=== PATIENT | male | born 1940 | race Caucasian/White ===

== ENCOUNTER 2022-02-07 19:38 | Inpatient (IN) | payer MEDICARE, BC ==
[~2022-02-07] VITALS: Ht 167.6 cm; Wt 78.5 kg
--- NOTE | 2022-02-07 20:15 | NUR ---
TO ER BED 8. C/O BILATERRAL BLURRY VISION , PER PT "UNABLE TO FOCUS" AND L WRIST WEAKNESS. BEGAN AT 1700. PT COVID POS. ISOLATION PRECAUTIONS IN PLACE. NO FACIAL DROOP NOTED. NO WEAKNESS ON EXTREMITIES. DENIES ANY CHEST PAIN. NOT RESP DISTRESS. CONNECTED TO MONITOR.
[2022-02-07] MEDS ORDERED: TETRAcaine 5 ML BOTTLE EACHEYE ONE (20:30)
--- NOTE | 2022-02-07 20:46 | NUR ---
PER LEVER OPERATOR , VISION 20/50 BILATERAL WITH GLASSES
[2022-02-07 21:15] LABS: CALCIUM, SERUM 8.3 mg/dL (8.5-10.1); CREATININE 0.8 mg/dL (0.6-1.3); POTASSIUM 4.1 mmol/L (3.5-5.1)
--- NOTE | 2022-02-07 21:17 | NUR ---
CRITICAL LAB Na 112
[2022-02-07 21:21] LABS: BASOPHILS % (AUTO) 0.1 % (0.0-2.0); EOSINOPHILS % (AUTO) 0.2 % (0.0-6.0); HEMATOCRIT 37 % (39-51); HEMOGLOBIN 12.9 g/dL (13.5-17.5); LYMPHOCYTES # (AUTO) 0.5 K/uL (0.8-4.8); LYMPHOCYTES % (AUTO) 6.9 % (20.0-44.0); MEAN CORPUSCULAR HGB CONC 35 g/dl (31.0-36.0); MEAN CORPUSCULAR VOLUME 89 fL (80-96); MONOCYTES # (AUTO) 0.9 K/uL (0.1-1.30); MONOCYTES % (AUTO) 11.8 % (2.0-12.0); PLATELET COUNT (AUTO) 244 K/uL (150-450); RED BLOOD CELL COUNT(AUTO) 4.19 MIL/uL (4.5-6.0); WHITE BLOOD COUNT (AUTO) 7.4 K/uL (4.3-11.0)
--- NOTE | 2022-02-07 21:48 | NUR ---
COVID ANTIGEN SWAB COLLECTED
[2022-02-07] MEDS ORDERED: IV NS 0.9% 500 ML IV ONE (22:00)
[2022-02-07 22:23] LABS: CALCIUM, SERUM 8.3 mg/dL (8.5-10.1); CARBON DIOXIDE 23 mmol/L (21-32); CHLORIDE 81 mmol/L (98-107); CREATININE 0.8 mg/dL (0.6-1.3); GLUCOSE 97 mg/dL (74-106); UREA NITROGEN, BLOOD 14 mg/dL (7-18)
[2022-02-07 22:28] LABS: POTASSIUM 4.1 mmol/L (3.5-5.1)
[2022-02-07 22:29] LABS: SODIUM SERUM 112 mmol/L (136-145)
--- NOTE | 2022-02-07 23:16 | NUR ---
FOOD AND WATER PROVIDED TO PT, WILL CONTINUE TO MONITOR
[2022-02-07] MEDS ORDERED: MAGNESIUM HYDROXIDE 30 ML UDC PO PRN (23:30)
[2022-02-07] MEDS ORDERED: Z GUARD REMEDY 4 OZ OINT TP PRN (23:30)
[2022-02-07] MEDS ORDERED: MAG HYDROX/AL HYDROX/SIMETH 30 ML UDC PO PRN (23:30)
[2022-02-07] MEDS ORDERED: ACETAMINOPHEN 325 MG TABLET PO PRN (23:30)
[2022-02-07] MEDS ORDERED: ALPRAZOLAM 0.5 MG TABLET PO PRN (23:30)
[2022-02-07] MEDS ORDERED: TEMAZEPAM 15 MG CAPSULE PO PRN (23:30)
[2022-02-08] VITALS (7 sets, daily range): BP systolic 125–160; BP diastolic 66–85
--- NOTE | 2022-02-08 00:34 | NUR ---
REPORT GIVEN TO EVELIN PADILLA FOR YAMILEX
--- NOTE | 2022-02-08 00:55 | NUR ---
jackson rn notes Received and admitted a 81 y/o male alert x4 ambulatory . able to make needs known on room air from home with admitted dx of hyponatremia , pts on covid positive no sob no distress noted hx of htn , pre diabetic hld v/s stable afebrile pts is nkda and is full code ,ivf on right hand G20 intact and patent with ns at 75cc/hr . all needs attended too call light within reach ,will continue to monitor pts.
--- NOTE | 2022-02-08 01:25 | NUR ---
0125 Patient with c/o dry cough, JOHAN Troy made aware with order for cough medication. Order noted.
[2022-02-08] MEDS: IV NS 0.9% 1,000 ML IV PRN ×2 (01:28→20:32)
[2022-02-08 02:24] LABS: CALCIUM, SERUM 7.6 mg/dL (8.5-10.1); CARBON DIOXIDE 24 mmol/L (21-32); CHLORIDE 84 mmol/L (98-107); CREATININE 0.8 mg/dL (0.6-1.3); GLUCOSE 94 mg/dL (74-106); UREA NITROGEN, BLOOD 15 mg/dL (7-18)
[2022-02-08 02:29] LABS: POTASSIUM 4.2 mmol/L (3.5-5.1)
[2022-02-08 02:30] LABS: SODIUM SERUM 115 mmol/L (136-145)
[2022-02-08] MEDS: GUAIFENESIN/CODEINE 10 ML UDC PO PRN ×3 (03:00→19:49)
[2022-02-08 06:19] LABS: MAGNESIUM 1.9 mg/dL (1.8-2.4); PHOSPHORUS 2.4 mg/dL (2.5-4.9)
[2022-02-08 06:29] LABS: THYROID STIMULATING HORMONE 0.863 uIU/mL (0.358-3.74)
[2022-02-08 06:47] LABS: BASOPHILS % (AUTO) 0.1 % (0.0-2.0); EOSINOPHILS % (AUTO) 0.5 % (0.0-6.0); HEMATOCRIT 33 % (39-51); LYMPHOCYTES # (AUTO) 0.8 K/uL (0.8-4.8); LYMPHOCYTES % (AUTO) 9.2 % (20.0-44.0); MEAN CORPUSCULAR HGB CONC 36 g/dl (31.0-36.0); MEAN CORPUSCULAR VOLUME 88 fL (80-96); MONOCYTES # (AUTO) 1.1 K/uL (0.1-1.30); NEUTROPHILS # (AUTO) 6.6 K/uL (1.8-8.9); NEUTROPHILS % (AUTO) 77.2 % (43.0-81.0); PLATELET COUNT (AUTO) 223 K/uL (150-450); RED BLOOD CELL COUNT(AUTO) 3.77 MIL/uL (4.5-6.0); WHITE BLOOD COUNT (AUTO) 8.6 K/uL (4.3-11.0)
[2022-02-08] MEDS ORDERED: ASPI-1169 PO (08:43)
[2022-02-08] MEDS ORDERED: OLME40TA18 PO (08:43)
[2022-02-08] MEDS ORDERED: SIMV-46 PO (08:43)
[2022-02-08] MEDS ORDERED: K PHOS NEUTRAL 250 MG TABLET PO ONE (09:00)
[2022-02-08 09:53] LABS: CALCIUM, SERUM 7.5 mg/dL (8.5-10.1); CREATININE 0.8 mg/dL (0.6-1.3); POTASSIUM 3.9 mmol/L (3.5-5.1)
[2022-02-08] MEDS ORDERED: FUROSEMIDE 20 MG/2 ML VIAL IV ONE (10:30)
[2022-02-08] MEDS: SODIUM CHLORIDE 1000 MG TABLET PO SCH (10:59)
[2022-02-08] MEDS: ENOXAPARIN SODIUM 40 MG/0.4 ML DISP.SYRIN SQ SCH (12:26)
[2022-02-08 12:47] LABS: C-REACTIVE PROTEIN 0.4 mg/dL (0.0-0.9)
[2022-02-08 12:52] LABS: ALBUMIN 2.9 g/dL (3.4-5.0); BILIRUBIN,DIRECT 0.1 mg/dL (0.0-0.2); BILIRUBIN,TOTAL 0.7 mg/dL (0.2-1.0)
[2022-02-08 13:39] LABS: CALCIUM, SERUM 7.5 mg/dL (8.5-10.1); CREATININE 0.9 mg/dL (0.6-1.3); POTASSIUM 3.8 mmol/L (3.5-5.1)
--- NOTE | 2022-02-08 15:33 | NUR ---
RN NOTE RECEIVED HOME MEDS FROM PT'S , SEAN. MD MADE AWARE AND AGREED TO CONTINUE REMAINING MEDS. HOME MEDS GIVEN TO PHARMACY.
--- NOTE | 2022-02-08 15:40 | NUR ---
RN NOTE PT WAS PICKED UP FOR MRI VIA WHEELCHAIR. PT NOT IN RESPI DISTRESS.
[2022-02-08] MEDS ORDERED: GADOTERATE MEGLUMINE 10 MMOL/20 ML VIAL IV ONE (16:27)
[2022-02-08] MEDS: NIRMATRELVIR PO SCH (17:13)
[2022-02-08] MEDS: RITONAVIR 100 MG PO SCH (17:13)
--- NOTE | 2022-02-08 19:21 | NUR ---
RN NOTE PT RESTING IN BED, REMAINS IN ROOM AIR. NOT IN RESPIRATORY DISTRESS. AFEBRILE. NO COMPLAINTS OF PAIN AND DISCOMFORT. ALL DUE MEDS TAKEN. MORNING AND EVENING CARE DONE. NEEDS ATTENDED. SAFETY MEASURES FOLLOWED. WILL CONTINUE TO MONITOR.
[2022-02-08 19:22] LABS: CALCIUM, SERUM 7.6 mg/dL (8.5-10.1); CREATININE 0.8 mg/dL (0.6-1.3); POTASSIUM 4.1 mmol/L (3.5-5.1)
--- NOTE | 2022-02-08 19:30 | NUR ---
RN NOTE RECEIVED PATIENT IN BED, AWAKE, ALERT, AND VERBALLY RESPONSIVE. ABLE TO MAKE NEEDS KNOWN. DENIES HEADACHE OR WEAKNESS ON ALL FOUR EXTREMITIES. BREATHING EVEN AND UNLABORED. TOLERATING ROOM AIR. DENIES FEELING SOB. NOTED WITH MILD NON-PRODUCTIVE COUGH. ON TELE MONITORING. DENIES CHEST PAIN. SKIN WARM AND DRY. RIGHT HAND 20G PERIPHERAL IV, INFUSING NS AT 75 CC/HR. DENIES PAIN. PATIENT IS AMBULATORY. REMINDED TO USE CALL LIGHT WHEN ASSISTANCE IS NEEDED. URINAL WITHIN REACH. ALL PERSONAL BELONGINGS WITHIN REACH. NO BLEEDING NOTED AT THIS TIME. SAFETY MEASURES NOTED. BED LOW, IN LOCKED POSITION, CALL LIGHT WITHIN REACH.
[2022-02-08] MEDS: SIMVASTATIN 20 MG TABLET PO SCH (21:58)
[2022-02-08] MEDS: TEMAZEPAM 15 MG CAPSULE PO PRN (21:58)
--- NOTE | 2022-02-08 22:00 | NUR ---
RN NOTE PATIENT ACCIDENTLY REMOVED PERIPHERAL IV 20G ON RIGHT HAND. REINSERTED 20G IV ON LEFT WRIST. RESTARTED IVF.
[2022-02-08] MEDS ORDERED: HYDROCODONE/APAP 5/325MG TABLET PO PRN (22:30)
[2022-02-09] VITALS: BP 158/72
[2022-02-09 03:00] LABS: CARBON DIOXIDE 23 mmol/L (21-32); CHLORIDE 86 mmol/L (98-107); CREATININE 0.9 mg/dL (0.6-1.3); GLUCOSE 114 mg/dL (74-106); UREA NITROGEN, BLOOD 18 mg/dL (7-18)
[2022-02-09 03:05] LABS: POTASSIUM 4.1 mmol/L (3.5-5.1)
[2022-02-09 03:09] LABS: SODIUM SERUM 117 mmol/L (136-145)
--- NOTE | 2022-02-09 03:23 | NUR ---
RN NOTE RECEIVED CRITICAL LAB, SODIUM SERUM 117. Patient with previous LOW serum sodium levels, MD waste transportation technician, Woodrow, notified and aware since beginning of PM Shift. no new order. MD ordered BMP Q 4H. previously on Sodium Serum q2h. Patient on NS at 75 cc/hr, Limiting PO water intake at this time. Patient AOX4. No changes in mental status. Sleeping at this time, arousable to name and touch. Denies headache, denies new onset weakness. Patient was able to stand up to have bed linen changed earlier. denied feeling of dizziness. No ataxia. Safety measures implemented, bed low, in locked position, call light within reach.
[2022-02-09 04:00] VITALS: BP 152/75
[2022-02-09] MEDS: IV NS 0.9% 1,000 ML IV PRN ×2 (04:41→20:55)
--- NOTE | 2022-02-09 07:00 | NUR ---
RN NOTE RECEIVED PATIENT on BED, AWAKE, ALERT, AND VERBALLY RESPONSIVE. ABLE TO MAKE NEEDS KNOWN.C/O CONSTIPATION, MOM GIVEN ON TELE SR HR IN 80'S , DENIES CHEST PAIN. SKIN WARM AND DRY. RIGHT HAND 20G PERIPHERAL IV, INFUSING NS AT 75 CC/HR. DENIES PAIN. PATIENT IS AMBULATORY. REMINDED TO USE CALL LIGHT WHEN ASSISTANCE IS NEEDED. URINAL WITHIN REACH. NO BLEEDING NOTED AT THIS TIME. SAFETY MEASURES NOTED.SR UP x3, BED LOW AND IN LOCKED POSITION, CALL LIGHT WITHIN REACH. WILL CONTINUE TO MONITOR
[2022-02-09 08:00] VITALS: BP 151/76
[2022-02-09 08:00] LABS: CALCIUM, SERUM 7.6 mg/dL (8.5-10.1); CREATININE 0.7 mg/dL (0.6-1.3); PHOSPHORUS 3.1 mg/dL (2.5-4.9); POTASSIUM 3.8 mmol/L (3.5-5.1)
[2022-02-09] MEDS: GUAIFENESIN/CODEINE 10 ML UDC PO PRN (08:10)
[2022-02-09] MEDS: ASPIRIN 81 MG TAB.CHEW PO SCH (08:12)
[2022-02-09] MEDS: LOSARTAN POTASSIUM 50 MG TABLET PO SCH (08:12)
[2022-02-09] MEDS: ENOXAPARIN SODIUM 40 MG/0.4 ML DISP.SYRIN SQ SCH (08:12)
[2022-02-09] MEDS: SODIUM CHLORIDE 1000 MG TABLET PO SCH (08:15)
[2022-02-09] MEDS: RITONAVIR 100 MG PO SCH ×2 (09:19→16:36)
[2022-02-09] MEDS: NIRMATRELVIR PO SCH ×2 (09:20→16:36)
[2022-02-09] MEDS: FUROSEMIDE 20 MG/2 ML VIAL IV SCH (10:16)
[2022-02-09] MEDS: POLYETHYLENE GLYCOL 3350 17 GM POWD.PACK PO SCH (11:23)
[2022-02-09] MEDS: DOCUSATE SODIUM LIQ 100 MG/10 ML UDC PO SCH ×2 (11:23→16:35)
[2022-02-09 12:00] VITALS: BP 95/54
[2022-02-09 16:00] VITALS: BP 155/72
[2022-02-09] MEDS: ONDANSETRON HCL/PF 4 MG/2 ML VIAL IVP PRN ×2 (16:36→22:55)
--- NOTE | 2022-02-09 16:36 | NUR ---
RN NOTES PT VOMITTED SMALL AMOUNT OF BROWNISH GASTRIC CONTENT, ZOFRAN IV GIVEN PER MD ORDER . CONTINUE TO MONITOR.
--- NOTE | 2022-02-09 18:11 | NUR ---
RN NOTES PT AT REST, NAUSEA IMPROVED , PT STATED FEELS BETTER , PT PASSING GAS, SR UP x3, CALL LIGHT WITHIN EASY REACH, BED LOCKED AND IN LOWEST POSITION, WILL ENDORSE TO MEDICAL SUPPORT SPECIALIST NURSE FOR CONTINUITY OF CARE .
--- NOTE | 2022-02-09 19:30 | NUR ---
RN NOTE RECEIVED PATIENT IN BED, AWAKE, ALERT, AND VERBALLY RESPONSIVE. AOX4. DENIES HEADACHE/NEW ONSET WEAKNESS. BREATHING EVEN AND UNLABORED. TOLERATING ROOM AIR. DENIES FEELING SHORTNESS OF BREATH. HOB ELEVATED 40 DEGREES. ON TELE MONITORING, DENIES CHEST PAIN. SKIN WARM AND DRY. LEFT HAND/WRIST 20G PERIPHERAL IV INTACT, INFUSING NS AT 75 CC/HR. URINAL AT BEDSIDE. PATIENT IS AMBULATORY. ASSISTED TO THE BATHROOM PER PATIENT REQUEST. PATIENT DENIES FEELINGS OF SYNCOPE. NO ATAXIA NOTED. URINATED ABOUT 100 CC OF OLAMIDE COLORED URINE. ASSISTED WITH PM HYGIENE CARE. EMESIS BAG AT BEDSIDE. NO N/V AT THIS TIME. BED LOW, IN LOCKED POSITION, CALL LIGHT WITHIN REACH.
[2022-02-09 20:00] VITALS: BP 146/81
[2022-02-09] MEDS: TEMAZEPAM 15 MG CAPSULE PO PRN (21:44)
[2022-02-09] MEDS: SIMVASTATIN 20 MG TABLET PO SCH (21:47)
--- NOTE | 2022-02-09 21:48 | NUR ---
RN NOTE PATIENT REFUSED PM SCHEDULED SIMVASTATIN. RISK AND BENEFITS EXPLAINED.
[2022-02-10] VITALS: BP 150/80
[2022-02-10 04:00] VITALS: BP 158/64
[2022-02-10] MEDS: ONDANSETRON HCL/PF 4 MG/2 ML VIAL IVP PRN (04:49)
--- NOTE | 2022-02-10 04:49 | NUR ---
RN NOTE PATIENT NOTED WITH 1 EPISODE OF VOMITING. SMALL AMOUNT OF BROWN COLORED EMESIS. ELEVATED HOB 90 DEGREES. PROVIDED WITH ICE CHIPS. ADMINISTERED ZOFRAN VIA IV ROUTE. NO S/S OF ASPIRATION. PATIENT FELT BETTER AFTER VOMITING. WILL CONTINUE TO MONITOR.
--- NOTE | 2022-02-10 05:56 | NUR ---
RN NOTE PATIENT HAD ONE EPISODE OF EMESIS. NO ASPIRATION. PATIENT CLEANED. ASSISTED PATIENT TO THE TOILET. PATIENT HAD A BOWEL MOVEMENT. PATIENT VERBALIZED FEELING RELIEF.
--- NOTE | 2022-02-10 07:34 | NUR ---
RN OPENING NOTE PATIENT RECEIVED IN BED, RESTING. PATIENT ON ROOM AIR WITH NO SIGNS OF LABORED BREATHING AT THIS TIME. LEFT WRIST 20G IV IN PLACE RUNNING NS AT 75CC/HR. PT ON FLUID RESTRICTION AT THIS TIME. BED LOCKED AND IN LOWEST POSITION, CALL LIGHT WITHIN REACH, 3 SIDE RAILS UP.
[2022-02-10 08:00] VITALS: BP 154/66
[2022-02-10] MEDS: FUROSEMIDE 20 MG/2 ML VIAL IV SCH (08:28)
[2022-02-10] MEDS: SODIUM CHLORIDE 1000 MG TABLET PO SCH (08:28)
[2022-02-10] MEDS: ASPIRIN 81 MG TAB.CHEW PO SCH (08:28)
[2022-02-10] MEDS: POLYETHYLENE GLYCOL 3350 17 GM POWD.PACK PO SCH (08:28)
[2022-02-10] MEDS: DOCUSATE SODIUM LIQ 100 MG/10 ML UDC PO SCH ×2 (08:28→16:19)
[2022-02-10] MEDS: LOSARTAN POTASSIUM 50 MG TABLET PO SCH (08:28)
[2022-02-10] MEDS: ENOXAPARIN SODIUM 40 MG/0.4 ML DISP.SYRIN SQ SCH (08:29)
[2022-02-10] MEDS: NIRMATRELVIR PO SCH (09:00)
[2022-02-10] MEDS: RITONAVIR 100 MG PO SCH (09:00)
[2022-02-10 09:08] LABS: ALBUMIN 2.9 g/dL (3.4-5.0); BILIRUBIN,DIRECT 0.2 mg/dL (0.0-0.2); BILIRUBIN,TOTAL 0.7 mg/dL (0.2-1.0); CALCIUM, SERUM 8.1 mg/dL (8.5-10.1); CREATININE 1.1 mg/dL (0.6-1.3); POTASSIUM 3.7 mmol/L (3.5-5.1)
[2022-02-10] MEDS ORDERED: LACTULOSE 10 G/15 ML UDC (PYXIS) PO SCH (09:30)
[2022-02-10] MEDS: IV NS 0.9% 1,000 ML IV PRN (10:18)
[2022-02-10 12:00] VITALS: BP 130/48
--- NOTE | 2022-02-10 12:54 | NUR ---
RN NOTE NG TUBE PLACED AND PUT ON LOW INTERMITTENT SUCTION ORDERED. 400CC OF DARK GASTRIC DRAINAGE OUT. STAT CXR ORDERED TO CONFIRM PLACEMENT.
[2022-02-10 16:00] VITALS: BP 159/70
--- NOTE | 2022-02-10 18:21 | NUR ---
RN NOTE SODIUM 119 VALUE RECEIVED. REPORTED TO DR. MUELLER. NO NEW ORDER.
--- NOTE | 2022-02-10 18:40 | NUR ---
RN NOTE ORDERED RECEIVED FROM DR. SAENZ FOR 3% NACL AT 40CC/HR FOR 5 HOURS, HOLD NS DURING NACL AND RESUME AFTER. DRAW SERUM SODIUM AFTER FULL 5HOURS OF NACL COMPLETED. INSERT NGO CATHETER. ORDER PLACED.
--- NOTE | 2022-02-10 18:43 | NUR ---
RN CLOSING NOTE PATIENT REMAINS IN BED, AWAKE, A&OX4. PATIENT ON ROOM AIR WITH NO SIGNS OF LABORED BREATHING AT THIS TIME. LEFT WRIST 20G IV IN PLACE RUNNING NS AT 75CC/HR. NG TUBE IN PLACE ON LOW INTERMITTENT SUCTION, 400CC OUTPUT. BED LOCKED AND IN LOWEST POSITION, CALL LIGHT WITHIN REACH, 3 SIDE RAILS UP. ALL NEEDS ATTENDED DURING SHIFT. WILL ENDORSE TO ASSEMBLY REPAIRER NURSE.
--- NOTE | 2022-02-10 18:56 | NUR ---
RN NOTE NGO CATHETER INSERTED ORDERED. PT TOLERATED WELL. WILL ENDORSE.
[2022-02-10] MEDS ORDERED: SODIUM CHLORIDE 3% IV ONE (19:00)
--- NOTE | 2022-02-10 19:10 | NUR ---
RN OPENING NOTE RECEIVED PT IN BED, RESTING, A/O X 4. ON ROOM AIR TOLERATING WELL. NO SIGNS OF ACUTE DISTRESS NOTED AT THIS TIME. PT ON NGT WITH LOW INTERMITTENT SUCTION, TOLERATING WELL. IV ACCES AT LEFT WRIST 20G IV IN PLACE RUNNING NS AT 75CC/HR. NO SIGNS OF INFILTRATION NOTED. PT IS NPO. ALL SAFETY MEASURES IN PLACE. BED LOCKED AND IN LOWEST POSITION, CALL LIGHT WITHIN REACH. WILL CONTINUE TO MONITOR.
[2022-02-10 20:00] VITALS: BP 154/64
--- NOTE | 2022-02-10 21:12 | NUR ---
RN NOTE RECEIVED REPORT FROM LAUREEN FOR YAMILEX. PT AWAKE A0X4. DENIES ANY PAIN OR SOB. WITH NGT CONNECTED TO SUCTION, WITH GREENISH DRAINAGE. IV ON L WRIST PATENT AND INTACT, INFUSING NS 3% AT 40ML/HR. NGO IN PLACE WITH YELLOW URINE OUTPUT. WILL CONTINUE TO MONITOR.
[2022-02-10] MEDS: SIMVASTATIN 20 MG TABLET PO SCH (22:00)
[2022-02-11] VITALS: BP 137/60
[2022-02-11] MEDS: IV NS 0.9% 1,000 ML IV PRN ×2 (02:16→15:23)
[2022-02-11 04:00] VITALS: BP 131/61
[2022-02-11 05:02] LABS: BASOPHILS % (AUTO) 0.2 % (0.0-2.0); EOSINOPHILS % (AUTO) 0.1 % (0.0-6.0); HEMATOCRIT 38 % (39-51); HEMOGLOBIN 13.1 g/dL (13.5-17.5); LYMPHOCYTES # (AUTO) 0.7 K/uL (0.8-4.8); LYMPHOCYTES % (AUTO) 6.2 % (20.0-44.0); MEAN CORPUSCULAR HGB CONC 34 g/dl (31.0-36.0); MEAN CORPUSCULAR VOLUME 90 fL (80-96); MONOCYTES # (AUTO) 1.2 K/uL (0.1-1.30); MONOCYTES % (AUTO) 11.1 % (2.0-12.0); NEUTROPHILS # (AUTO) 8.9 K/uL (1.8-8.9); NEUTROPHILS % (AUTO) 82.4 % (43.0-81.0); PLATELET COUNT (AUTO) 278 K/uL (150-450); RED BLOOD CELL COUNT(AUTO) 4.23 MIL/uL (4.5-6.0); WHITE BLOOD COUNT (AUTO) 10.8 K/uL (4.3-11.0)
[2022-02-11 05:16] LABS: ALBUMIN 2.8 g/dL (3.4-5.0); BILIRUBIN,TOTAL 0.6 mg/dL (0.2-1.0); CALCIUM, SERUM 8.1 mg/dL (8.5-10.1); CREATININE 1.1 mg/dL (0.6-1.3); POTASSIUM 3.7 mmol/L (3.5-5.1); TOTAL PROTEIN, SERUM 5.9 g/dL (6.4-8.2)
--- NOTE | 2022-02-11 07:15 | NUR ---
RN OPENING NOTE RECEIVED PATIENT IN BED, AWAKE, A/O X 4. ON ROOM AIR TOLERATING WELL. BREATHING EVEN AND UNLABORED. NO SIGNS OF ACUTE DISTRESS NOTED AT THIS TIME. PT ON NGT WITH LOW INTERMITTENT SUCTION, TOLERATING WELL. PT IS NPO. IV ACCES AT LEFT WRIST 20G PATENT AND INTACT, INFUSING NS AT 75CC/HR. NO SIGNS OF INFILTRATION NOTED. ALL SAFETY MEASURES IN PLACE. BED LOCKED AND IN LOWEST POSITION, CALL LIGHT WITHIN REACH. WILL CONTINUE TO MONITOR PATIENT ACCORDINGLY THROUGHOUT SHIFT.
--- NOTE | 2022-02-11 07:15 | NUR ---
RN NOTE PT SLEEPING, AROUSES EASILY. NO CHANGES IN LOC NOTED. CONTINUE WITH NG CONNECTED TO LOW INTERMITTENT SUCTION WITH 1350 ML TOTAL DRAINAGE OUTPUT. DENIES PAIN OR SOB. REMAIN AFEBRILE. NGO DRAINING WELL. WILL ENDORSE TO NEXT SHIFT NURSE FOR YAMILEX.
[2022-02-11 08:00] VITALS: BP 147/64
[2022-02-11] MEDS: LOSARTAN POTASSIUM 50 MG TABLET PO SCH (09:00)
[2022-02-11] MEDS: ASPIRIN 81 MG TAB.CHEW PO SCH (09:00)
[2022-02-11] MEDS: ENOXAPARIN SODIUM 40 MG/0.4 ML DISP.SYRIN SQ SCH (09:00)
[2022-02-11] MEDS: SODIUM CHLORIDE 1000 MG TABLET PO SCH (09:00)
[2022-02-11] MEDS: POLYETHYLENE GLYCOL 3350 17 GM POWD.PACK PO SCH (09:00)
[2022-02-11] MEDS: DOCUSATE SODIUM LIQ 100 MG/10 ML UDC PO SCH ×2 (09:00→17:00)
[2022-02-11] MEDS: FUROSEMIDE 20 MG/2 ML VIAL IV SCH (09:30)
[2022-02-11 12:00] VITALS: BP 140/58
[2022-02-11] MEDS ORDERED: DIATR MEGLU/DIATRIZOATE SODIUM 120 ML BOTTLE (GASTROGRAPHIN) ONE (12:03)
[2022-02-11 16:00] VITALS: BP 149/63
--- NOTE | 2022-02-11 16:45 | NUR ---
RN NOTE COMMUNICATIONS DIRECTOR AT BEDSIDE TO PERFORM XRAY SMALL BOWEL FOLLOW THROUGH.
--- NOTE | 2022-02-11 18:43 | NUR ---
RN CLOSING NOTES PATIENT REMAINS IN STABLE CONDITION THROUGHOUT SHIFT. PATIENT AWAKE, A/O X 4. ON ROOM AIR TOLERATING WELL. BREATHING EVEN AND UNLABORED. NO SIGNS OF ACUTE DISTRESS NOTED AT THIS TIME. PT ON NGT WITH LOW INTERMITTENT SUCTION, TOLERATING WELL WITH OUTPUT OF 150 ML DURING SHIFT. PT IS STILL ON NPO PENDING SMALL BOWEL FOLLOW THROUGH. HELD ALL PO APPLICABLE MEDS. KEPT PATIENT CLEAN DRY AND COMFORTABLE. ALL NEEDS ATTENDED. IV ACCES AT LEFT WRIST 20G PATENT AND INTACT, INFUSING NS AT 75CC/HR. NO SIGNS OF INFILTRATION NOTED. ALL SAFETY MEASURES IN PLACE. BED LOCKED AND IN LOWEST POSITION, CALL LIGHT WITHIN REACH. WILL ENDORSE TO ONCOMING NURSE FOR CONTINUITY OF CARE.
--- NOTE | 2022-02-11 19:34 | NUR ---
RN NOTE PATIENT AWAKE, ALERT, AND ORIENTED X4. ON ROOM AIR, NO S/S OF ANY ACUTE RESPIRATORY DISTRESS. DENIES ANY PAIN AT THIS TIME. NGO CATH IN PLACE, DRAINING VIA GRAVITY. NGT IN PLACE, CLAMPED. XRAY AT BEDSIDE FOR SMALL BOWEL FOLLOW THROUGH. IV ACCESS ON LEFT WRIST #20 INFUSING NS @ 75ML/HR. BED LOCKED AND IN LOWEST POSITION. SAFETY MEASURES MAINTAINED. CALL LIGHT WITHIN REACH. ALL NEEDS ANTICIPATED.
[2022-02-11 20:00] VITALS: BP 151/65
[2022-02-11] MEDS: SIMVASTATIN 20 MG TABLET PO SCH (22:00)
[2022-02-12] VITALS: BP 147/65
[2022-02-12 04:00] VITALS: BP 157/65
[2022-02-12] MEDS: IV NS 0.9% 1,000 ML IV PRN (04:13)
[2022-02-12 05:47] LABS: ALANINE AMINOTRANSFERASE 43 U/L (12-78); ALBUMIN 2.6 g/dL (3.4-5.0); ALKALINE PHOSPHATASE 38 U/L (46-116); ASPARTATE AMINOTRANSFERASE 25 U/L (15-37); BILIRUBIN,TOTAL 0.5 mg/dL (0.2-1.0); CALCIUM, SERUM 8.1 mg/dL (8.5-10.1); CARBON DIOXIDE 28 mmol/L (21-32); CHLORIDE 96 mmol/L (98-107); CREATININE 1.1 mg/dL (0.6-1.3); GLUCOSE 134 mg/dL (74-106); POTASSIUM 3.5 mmol/L (3.5-5.1); SODIUM SERUM 132 mmol/L (136-145); TOTAL PROTEIN, SERUM 5.7 g/dL (6.4-8.2); UREA NITROGEN, BLOOD 46 mg/dL (7-18)
--- NOTE | 2022-02-12 06:30 | NUR ---
RN NOTE PATIENT RESTING IN BED. ON O2 3L VIA NASAL CANNULA, NO SOB NOTED. NGO CATH IN PLACE, OUTPUT 800. NGT IN PLACE, CONTINUED LOW INTERMITTENT SUCTION POST XRAY SMALL BOWEL. NOTED WITH 400CC DARK GREEN GASTRIC FLUID. IV ACCESS ON LEFT WRIST #20 INFUSING NS @ 75ML/HR. BED LOCKED AND IN LOWEST POSITION. SAFETY MEASURES MAINTAINED. CALL LIGHT WITHIN REACH. WILL ENDORSE TO AM SHIFT.
[2022-02-12 08:00] VITALS: BP 142/68
[2022-02-12] MEDS: SODIUM CHLORIDE 1000 MG TABLET PO SCH (09:08)
[2022-02-12] MEDS: ASPIRIN 81 MG TAB.CHEW PO SCH (09:08)
[2022-02-12] MEDS: FUROSEMIDE 20 MG/2 ML VIAL IV SCH (09:09)
[2022-02-12] MEDS: DOCUSATE SODIUM LIQ 100 MG/10 ML UDC PO SCH ×2 (09:10→17:51)
[2022-02-12] MEDS: LOSARTAN POTASSIUM 50 MG TABLET PO SCH (09:10)
[2022-02-12] MEDS: POLYETHYLENE GLYCOL 3350 17 GM POWD.PACK PO SCH (09:10)
[2022-02-12] MEDS: ENOXAPARIN SODIUM 40 MG/0.4 ML DISP.SYRIN SQ SCH (09:16)
[2022-02-12 12:00] VITALS: BP 132/64
[2022-02-12 16:00] VITALS: BP 138/66
--- NOTE | 2022-02-12 19:10 | NUR ---
RN NOTE PT RECEIVED IN BED. CURRENTLY ON 3L OF O2 VIA NC SHOWING NO S/SX OF RESP DISTRESS. BREATHING EVEN AND UNLABORED. PT IS A/O X 4. NGT NOTED ON WITH LOW INTERMITTENT SUCTION DRAINING DARK GREEN GASTRIC FLUID. PT IS NPO. IV ACCESS NOTED AT LEFT WRIST 20G PATENT AND INTACT, INFUSING NS AT 75CC/HR. NO SIGNS OF INFILTRATION. ALL SAFETY MEASURES IMPLEMENTED. CALL LIGHT WITHIN REACH. BED LOCKED AND IN LOWEST POSITION, CALL LIGHT WITHIN REACH. WILL CONTINUE TO MONITOR PATIENT AND ASSESS FOR ANY CHANGES DURING SHIFT.
[2022-02-12 20:00] VITALS: BP 149/66
[2022-02-12] MEDS: SIMVASTATIN 20 MG TABLET PO SCH (21:41)
[2022-02-13] VITALS: BP 153/68
[2022-02-13] MEDS: IV NS 0.9% 1,000 ML IV PRN ×2 (00:29→13:31)
[2022-02-13 04:00] VITALS: BP 161/48
--- NOTE | 2022-02-13 05:12 | NUR ---
RN NOTE MADE PATIENT ROUNDING AND NG TUBE WAS ON THE FLOOR. RE-INSERTED NG TUBE, ASPIRATED, AUSCULTATED, AND ORDERED STAT CHEST XRAY.
--- NOTE | 2022-02-13 06:37 | NUR ---
RN NOTE NO CHANGES IN PT CONDITION DURING SHIFT. CURRENTLY ON 3L OF O2 VIA NC SHOWING NO S/SX OF RESP DISTRESS. BREATHING EVEN AND UNLABORED. IV ACCESS NOTED AT LEFT WRIST 20G PATENT AND INTACT, INFUSING NS AT 75CC/HR. NO SIGNS OF INFILTRATION. ALL SAFETY MEASURES IMPLEMENTED. PT KEPT CLEAN AND COMFORTABLE. ALL DUE MEDS GIVEN ORDERED. CALL LIGHT WITHIN REACH. BED LOCKED AND IN LOWEST POSITION, CALL LIGHT WITHIN REACH. WILL ENDORSE TO MORNING SHIFT RN FOR YAMILEX.
--- NOTE | 2022-02-13 07:28 | NUR ---
RN OPENING NOTES: PT RECEIVED IN BED. CURRENTLY ON 3L OF O2 VIA NC SHOWING NO S/SX OF RESP DISTRESS. BREATHING EVEN AND UNLABORED. PT IS A/O X 3-4. NGT NOTED ON WITH LOW INTERMITTENT SUCTION DRAINING DARK GREEN GASTRIC FLUID. PT IS NPO. IV ACCESS NOTED AT LEFT WRIST 20G PATENT AND INTACT, INFUSING NS AT 75CC/HR. NO SIGNS OF INFILTRATION. ALL SAFETY MEASURES IMPLEMENTED. CALL LIGHT WITHIN REACH. BED LOCKED AND IN LOWEST POSITION, CALL LIGHT WITHIN REACH. WILL CONTINUE TO MONITOR PATIENT AND ASSESS FOR ANY CHANGES DURING SHIFT.
[2022-02-13 07:33] LABS: EOSINOPHILS % (AUTO) 0.4 % (0.0-6.0); HEMATOCRIT 34 % (39-51); HEMOGLOBIN 11.5 g/dL (13.5-17.5); LYMPHOCYTES # (AUTO) 0.5 K/uL (0.8-4.8); LYMPHOCYTES % (AUTO) 6.4 % (20.0-44.0); MEAN CORPUSCULAR HGB CONC 34 g/dl (31.0-36.0); MEAN CORPUSCULAR VOLUME 92 fL (80-96); MONOCYTES # (AUTO) 0.8 K/uL (0.1-1.30); MONOCYTES % (AUTO) 9.7 % (2.0-12.0); NEUTROPHILS # (AUTO) 7.1 K/uL (1.8-8.9); NEUTROPHILS % (AUTO) 83.5 % (43.0-81.0); PLATELET COUNT (AUTO) 255 K/uL (150-450); RED BLOOD CELL COUNT(AUTO) 3.64 MIL/uL (4.5-6.0); WHITE BLOOD COUNT (AUTO) 8.5 K/uL (4.3-11.0)
[2022-02-13 07:56] LABS: ALANINE AMINOTRANSFERASE 40 U/L (12-78); ALBUMIN 2.2 g/dL (3.4-5.0); ALKALINE PHOSPHATASE 41 U/L (46-116); ASPARTATE AMINOTRANSFERASE 37 U/L (15-37); BILIRUBIN,TOTAL 0.5 mg/dL (0.2-1.0); CARBON DIOXIDE 28 mmol/L (21-32); CHLORIDE 102 mmol/L (98-107); CREATININE 0.9 mg/dL (0.6-1.3); GLUCOSE 93 mg/dL (74-106); POTASSIUM 3.3 mmol/L (3.5-5.1); SODIUM SERUM 139 mmol/L (136-145); TOTAL PROTEIN, SERUM 5.4 g/dL (6.4-8.2); UREA NITROGEN, BLOOD 38 mg/dL (7-18)
[2022-02-13 08:00] VITALS: BP 163/63
[2022-02-13] MEDS: LOSARTAN POTASSIUM 50 MG TABLET PO SCH (08:42)
[2022-02-13] MEDS: ASPIRIN 81 MG TAB.CHEW PO SCH (08:42)
[2022-02-13] MEDS: DOCUSATE SODIUM LIQ 100 MG/10 ML UDC PO SCH ×2 (08:42→16:22)
[2022-02-13] MEDS: SODIUM CHLORIDE 1000 MG TABLET PO SCH (08:43)
[2022-02-13] MEDS: POLYETHYLENE GLYCOL 3350 17 GM POWD.PACK PO SCH (08:43)
[2022-02-13] MEDS: ENOXAPARIN SODIUM 40 MG/0.4 ML DISP.SYRIN SQ SCH (08:52)
[2022-02-13] MEDS: FUROSEMIDE 20 MG/2 ML VIAL IV SCH (08:53)
[2022-02-13 12:00] VITALS: BP 152/62
[2022-02-13] MEDS: POTASSIUM CL. PREMIX PERIPHER. 50 ML IV SCH ×2 (12:09→13:29)
--- NOTE | 2022-02-13 15:30 | NUR ---
RN notes: seen by Priscila [facility] COMMISSIONER surgeon who reviewed KUB result, aware that pt had large loose BM with order to DC NGT and start clear liquid diet and advance as tolerated, NGT remived, pt started to drink apple juice well tolerated, will monitor pt
[2022-02-13 16:00] VITALS: BP 153/63
--- NOTE | 2022-02-13 18:35 | NUR ---
RN notes: weaning trail to take off oxygen done pt left 30 moniutes without oxygen denies any SOB, O2 sat 96%
--- NOTE | 2022-02-13 19:19 | NUR ---
RN closing notes: PATIENT IN STABLE CONDITION THROUGHOUT SHIFT. PATIENT AWAKE, A/O X 4. ON ROOM AIR TOLERATING WELL,2 sat 96%. BREATHING EVEN AND UNLABORED. NO SIGNS OF ACUTE DISTRESS NOTED AT THIS TIME. PT TOLERATED HIS DIET LIQUID DIET WELL,. HELD ALL PO APPLICABLE MEDS. KEPT PATIENT CLEAN DRY AND COMFORTABLE. ALL NEEDS ATTENDED. IV ACCES AT LEFT WRIST 20G PATENT AND INTACT, iv FLUID WAS DISCONTINUED. ALL SAFETY MEASURES IN PLACE. BED LOCKED AND IN LOWEST POSITION, CALL LIGHT WITHIN REACH. WILL ENDORSE TO ONCOMING NURSE FOR CONTINUITY OF CARE
--- NOTE | 2022-02-13 19:50 | NUR ---
RN NOTE RECEIVED PATIENT IN BED, AWAKE, ALERT, AND VERBALLY RESPONSIVE. AOX4, ABLE TO MAKE NEEDS KNOWN. BREATHING EVEN AND UNLABORED. NOTED WITH COUGH. NO SPUTUM. DENIES SOB. ON ROOM AIR. HOB ELEVATED SEMI FERRERA. NOT ON TELE MONITORING. PATIENT DENIES CHEST PAIN. SKIN WARM AND DRY. LEFT WRIST 20G PERIPHERAL IV IS INTACT AND FLUSHING WELL WITH NO INFILTRATION. PATIENT DENIES PAIN ON SITE. NO IVF RUNNING. DENIES ABDOMINAL PAIN. INDWELLING NGO CATHETER INTACT, NO BLEEDING, DRAINING BY GRAVITY. BED LOW, IN LOCKED POSITION, CALL LIGHT WITHIN REACH. ALL BELONGINGS WITHIN REACH. WILL CONTINUE TO MONITOR.
[2022-02-13 20:00] VITALS: BP 154/62
[2022-02-13] MEDS: SIMVASTATIN 20 MG TABLET PO SCH (21:34)
--- NOTE | 2022-02-13 21:34 | NUR ---
RN NOTE PATIENT REFUSED PM SIMVASTATIN. EXPLAINED RISK AND BENEFITS 3X. REFUSED.
[2022-02-14] VITALS: BP 150/68
[2022-02-14 04:00] VITALS: BP 155/75
[2022-02-14 07:07] LABS: BASOPHILS % (AUTO) 0.1 % (0.0-2.0); EOSINOPHILS % (AUTO) 1.9 % (0.0-6.0); HEMATOCRIT 34 % (39-51); HEMOGLOBIN 11.5 g/dL (13.5-17.5); LYMPHOCYTES # (AUTO) 0.5 K/uL (0.8-4.8); LYMPHOCYTES % (AUTO) 7.4 % (20.0-44.0); MEAN CORPUSCULAR HGB CONC 34 g/dl (31.0-36.0); MEAN CORPUSCULAR VOLUME 91 fL (80-96); NEUTROPHILS # (AUTO) 5.5 K/uL (1.8-8.9); NEUTROPHILS % (AUTO) 76.6 % (43.0-81.0); PLATELET COUNT (AUTO) 283 K/uL (150-450); RED BLOOD CELL COUNT(AUTO) 3.67 MIL/uL (4.5-6.0); WHITE BLOOD COUNT (AUTO) 7.1 K/uL (4.3-11.0)
[2022-02-14 07:16] LABS: ALANINE AMINOTRANSFERASE 38 U/L (12-78); ALBUMIN 2.1 g/dL (3.4-5.0); ALKALINE PHOSPHATASE 43 U/L (46-116); ASPARTATE AMINOTRANSFERASE 38 U/L (15-37); BILIRUBIN,TOTAL 0.5 mg/dL (0.2-1.0); CALCIUM, SERUM 8.3 mg/dL (8.5-10.1); CARBON DIOXIDE 32 mmol/L (21-32); CHLORIDE 102 mmol/L (98-107); CREATININE 0.8 mg/dL (0.6-1.3); GLUCOSE 103 mg/dL (74-106); POTASSIUM 3.3 mmol/L (3.5-5.1); SODIUM SERUM 140 mmol/L (136-145); TOTAL PROTEIN, SERUM 5.4 g/dL (6.4-8.2); UREA NITROGEN, BLOOD 30 mg/dL (7-18)
--- NOTE | 2022-02-14 07:30 | NUR ---
MS RN AM NOTE PATIENT IN BED, AOX4, ABLE TO MAKE NEEDS KNOWN. DENIES SOB, ON ROOM AIR, O2 SAT AT 95%, RESPIRATION UNLABORED, OCCASIONAL PRODUCTIVE COUGH. HOB ELEVATED SEMI FERRERA. DENIES CHEST PAINS OR ANY DISCOMFORT. SKIN WARM AND DRY. LEFT WRIST 20G PERIPHERAL IV FLUSHES WELL, SITE CLEAR. ABDOMEN, VERY FIRM AND DISTENDED, DENIES ABDOMINAL PAIN. HYPOACTIVE BOWEL SOUND, NO NAUSEA/VOMITING. INDWELLING NGO CATHETER INTACT, NO BLEEDING, DRAINING BY GRAVITY. BED LOW, IN LOCKED POSITION, CALL LIGHT WITHIN REACH. ALL BELONGINGS WITHIN REACH. POC DISCUSSED. VERBALIZED UNDERSTANDING. WILL CONTINUE TO MONITOR.
[2022-02-14 08:00] VITALS: BP 161/70
[2022-02-14] MEDS: DOCUSATE SODIUM LIQ 100 MG/10 ML UDC PO SCH ×2 (08:47→16:45)
[2022-02-14] MEDS: FUROSEMIDE 20 MG/2 ML VIAL IV SCH (08:47)
[2022-02-14] MEDS: ASPIRIN 81 MG TAB.CHEW PO SCH (08:47)
[2022-02-14] MEDS: POLYETHYLENE GLYCOL 3350 17 GM POWD.PACK PO SCH (08:48)
[2022-02-14] MEDS: LOSARTAN POTASSIUM 50 MG TABLET PO SCH (08:48)
[2022-02-14] MEDS: SODIUM CHLORIDE 1000 MG TABLET PO SCH (08:49)
[2022-02-14] MEDS: ENOXAPARIN SODIUM 40 MG/0.4 ML DISP.SYRIN SQ SCH (08:53)
--- NOTE | 2022-02-14 09:30 | NUR ---
RN NOTES DUE MEDS GIVEN
[2022-02-14] MEDS ORDERED: POTASSIUM CHLORIDE 20 MEQ POWDER PACKET PO SCH (10:00)
--- NOTE | 2022-02-14 10:32 | NUR ---
RN NOTES DR. KOENIG ORDERED FOR SMALL BOWEL FOLLOW THROUGH. PATIENT HAS DISTENDED ABDOMEN AND VERY FIRM. NO TENDERNESS. NO BM. PER XRAY THERES NO REASON TO DO SMALL BOWEL FOLLOW THROUGH DONE 2 DAYS. PER XRAY, IF DR. KOENIG COULD TALK TO THE RADIOLOGIST. PROVIDED XRAYS NUMBER. PER DR. KOENIG, WILL GIVE THEM A CALL.
--- NOTE | 2022-02-14 13:12 | NUR ---
RN NOTES PITA LACQUER DIPPING MACHINE OPERATOR FOR DR IRON MEDEROS AT BEDSIDE, INFORMED HER THAT DR. KOENIG WANTED TO DO A REPEAT SMALL BOWEL FOLLOW THROUGH, BUT ACCORDING TO HER JUST DO A REPEAT KUB IN AM.
--- NOTE | 2022-02-14 13:20 | NUR ---
RN NOTES PER DR. KOENIG, CANCEL SMALL BOWEL FOLLOWTHROUGH. WILL DO KUB IN AM INSTEAD. KEEP ON CLEAR LIQUID DIET
[2022-02-14 16:00] VITALS: BP 163/69
--- NOTE | 2022-02-14 18:27 | NUR ---
MS RN CLOSING NOTE PATIENT IN BED, AOX4, RESTING COMFORTABLY. ABLE TO MAKE NEEDS KNOWN. DENIES SOB, ON ROOM AIR, O2 SAT AT 95%, RESPIRATION UNLABORED, OCCASIONAL PRODUCTIVE COUGH. HOB ELEVATED SEMI FERRERA. DENIES CHEST PAINS OR ANY DISCOMFORT. SKIN WARM AND DRY. LEFT WRIST 20G PERIPHERAL IV FLUSHES WELL, SITE CLEAR. ABDOMEN, SLIGHTLY DISTENDED, DENIES ABDOMINAL PAIN. HYPOACTIVE BOWEL SOUND, NO NAUSEA/VOMITING. INDWELLING NGO CATHETER INTACT, WITH 2125 ML OUTPUT. DRAINING BY GRAVITY. BED LOW, IN LOCKED POSITION, CALL LIGHT WITHIN REACH. ALL BELONGINGS WITHIN REACH. ALL NEEDS MET AT THIS TIME. PM CARE DONE EARLIER. WILL ENDORSE TO NEXT SHIFT FOR YAMILEX. FOR KUB ABDOMEN IN AM.
--- NOTE | 2022-02-14 19:40 | NUR ---
RN NOTE RECEIVED PATIENT IN BED, AWAKE, ALERT, AND VERBALLY RESPONSIVE. ABLE TO MAKE NEEDS KNOWN. BREATHING EVEN AND UNLABORED. ON ROOM AIR. TOLERATING WELL. DENIES SOB. NOTED WITH PRODUCTIVE COUGH. NOT ON TELE MONITORING. DENIES CHEST PAIN. SKIN IS WARM AND DRY. LEFT WRIST 20G PERIPHERAL IV. NO IVF. PATIENT NOT COMPLAINING OF ANY ABDOMINAL ISSUE AT THIS TIME. NOTED PATIENT WITH FIRM ABDOMEN. NON-TENDER. PATIENT STATES HE HAD ONE BM IN AFTERNOON. INDWELLING NGO CATHETER INTACT, DRAINING YELLOW URINE. DENIES PAIN AT THIS TIME. ALL BELONGINGS WITHIN REACH. BED LOW, IN LOCKED POSITION, CALL LIGHT WITHIN REACH.
[2022-02-14 20:00] VITALS: BP 154/65
[2022-02-14] MEDS: SIMVASTATIN 20 MG TABLET PO SCH (22:00)
[2022-02-15 04:00] VITALS: BP 158/80
--- NOTE | 2022-02-15 06:35 | NUR ---
RN NOTE NO SIGNIFICANT CHANGES. PATIENT DID NOT COMPLAIN OF ABDOMINAL DISCOMFORT. PATIENT WAS ASSISTED TO BEDSIDE CHAIR PER REQUEST. WATCHED TELEVISION. ALL NEEDS ATTENDED. ASSISTED WITH HYGIENE CARE. INDWELLING NGO CATHETER CLEANED. INTACT. DRAINING YELLOW URINE. ALL BELONGINGS WITHIN REACH. BED LOW, IN LOCKED POSITION, CALL LIGHT WITHIN REACH.
[2022-02-15 07:02] LABS: BASOPHILS % (AUTO) 0.1 % (0.0-2.0); EOSINOPHILS % (AUTO) 1.5 % (0.0-6.0); HEMATOCRIT 33 % (39-51); HEMOGLOBIN 11.5 g/dL (13.5-17.5); LYMPHOCYTES # (AUTO) 0.8 K/uL (0.8-4.8); LYMPHOCYTES % (AUTO) 9.2 % (20.0-44.0); MEAN CORPUSCULAR HGB CONC 34 g/dl (31.0-36.0); MEAN CORPUSCULAR VOLUME 91 fL (80-96); MONOCYTES # (AUTO) 1.3 K/uL (0.1-1.30); MONOCYTES % (AUTO) 14.3 % (2.0-12.0); NEUTROPHILS # (AUTO) 6.7 K/uL (1.8-8.9); NEUTROPHILS % (AUTO) 74.9 % (43.0-81.0); PLATELET COUNT (AUTO) 303 K/uL (150-450); RED BLOOD CELL COUNT(AUTO) 3.68 MIL/uL (4.5-6.0)
[2022-02-15 07:36] LABS: CALCIUM, SERUM 7.9 mg/dL (8.5-10.1); CARBON DIOXIDE 31 mmol/L (21-32); CHLORIDE 100 mmol/L (98-107); CREATININE 0.9 mg/dL (0.6-1.3); GLUCOSE 112 mg/dL (74-106); POTASSIUM 3.4 mmol/L (3.5-5.1); SODIUM SERUM 138 mmol/L (136-145); UREA NITROGEN, BLOOD 25 mg/dL (7-18)
[2022-02-15 08:00] VITALS: BP 146/77
[2022-02-15] MEDS: POLYETHYLENE GLYCOL 3350 17 GM POWD.PACK PO SCH (09:21)
[2022-02-15] MEDS: DOCUSATE SODIUM LIQ 100 MG/10 ML UDC PO SCH ×2 (09:21→16:47)
[2022-02-15] MEDS: LOSARTAN POTASSIUM 50 MG TABLET PO SCH (09:22)
[2022-02-15] MEDS: FUROSEMIDE 20 MG/2 ML VIAL IV SCH (09:22)
[2022-02-15] MEDS: ASPIRIN 81 MG TAB.CHEW PO SCH (09:22)
[2022-02-15] MEDS: SODIUM CHLORIDE 1000 MG TABLET PO SCH (09:22)
[2022-02-15] MEDS: ENOXAPARIN SODIUM 40 MG/0.4 ML DISP.SYRIN SQ SCH (09:24)
--- NOTE | 2022-02-15 09:30 | NUR ---
RN NOTES ABDOMEN XRAY COMPLETED. DUE MEDS GIVEN. AWAITING XRAY RESULT
[2022-02-15] MEDS ORDERED: POTASSIUM CHLORIDE 20 MEQ POWDER PACKET PO SCH (10:00)
--- NOTE | 2022-02-15 11:38 | NUR ---
RN NOTES PER PITA GARCIA CLIENT APPLICATION SUPPORT ENGINEER FOR DR. IRON MEDEROS, PATIENT OKAYED FOR DISCHARGE.
[2022-02-15 16:00] VITALS: BP 150/64
--- NOTE | 2022-02-15 17:00 | NUR ---
RN NOTES PT DISCHARGED TO HOME TODAY PER MD STABLE CONDITION AND CLEARED BY SURGERY. PROVIDED WITH DC INSTRUCTIONS, HEALTH TEACHINGS, AND TO CONTINUE HOME MEDS. PATIENT TO FOLLOW UP WITH PP IN 1- 2 WEEKS AND WILL MAKE OWN APPOINTMENT. PATIENT ABLE TO TOLERATED FULL LIQUID FOR LUNCH EARLIER. SKIN INTACT. AMBULATE WITH ASSIST. IV ACCESS ON LEFT WRIST REMOVED, CATH TIP COMPLETE, PRESSURE AND DRESSING APPLIED, NO BLEEDING. ALL PAPERWORKS SIGNED. ALL BELONGINGS CHECKED AND RETURNED. ACCOMPANIED TO LOBBY VIA WHEELCHAIR AND WITH FACEMASK ON. PT PICKED UP BY VIA PRIVATE CAR TO TRANSPORT TO HOME.
== END 2022-02-15 16:58 | disposition home or self-care (01) | DRG 643 ==
LOC: ER 19:49 → TELE-TD 02-08 00:10 → TELE1 02-10 17:19 → TELE-TD 02-12 03:34 → TELE1 02-12 03:35 → MEDSG1 02-13 15:55
PROVIDERS: ADMIT Nurse Practitioner Acute Care; ATTEND Nurse Practitioner Acute Care
DX: E22.2 Syndrome of inappropriate secretion of antidiuretic hormone (principal); U07.1 COVID-19; J12.82 Pneumonia due to coronavirus disease 2019; J98.11 Atelectasis; K56.7 Ileus, unspecified; K56.609 Unspecified intestinal obstruction, unspecified as to partial versus complete obstruction; E86.1 Hypovolemia; E78.5 Hyperlipidemia, unspecified; E66.9 Obesity, unspecified; I10 Essential (primary) hypertension; Z79.82 Long term (current) use of aspirin; Z79.899 Other long term (current) drug therapy; T43.505A Adverse effect of unspecified antipsychotics and neuroleptics, initial encounter; Y92.009 Unspecified place in unspecified non-institutional (private) residence as the place of occurrence of the external cause; Z68.29 Body mass index [BMI] 29.0-29.9, adult; R09.02 Hypoxemia; D64.9 Anemia, unspecified
CPT/HCPCS: 36415; 70450-TC; 70553-TC; 71045-TC; 74018; 74250-TC; 80048-TC; 80053-TC; 80076-TC; 82533; 83735-TC; 84100-TC; 84295-TC; 84443-TC; 84550-TC; 85025-TC; 85378-TC; 86140-TC; 87081-TC; A9575; C9803; G0378; J1650; J1940; J2405; J3480; J3490; J7030; Q9963